=== PATIENT | male | born 1930 | race Caucasian/White ===

== ENCOUNTER → 2017-12-05 | Outpatient (CLI) | payer MEDICARE ==
[~2017-12-05] MED LIST: AC325T PO; ALPR.5T PO; AMLO5TAB2 PO; ASP81TEC PO; CARV6.25 PO; CYCL5TAB11 PO; ENAL5TAB PO; ENLP5T PO; MAG355OR55 PO; MTF500T PO; ONDAN4ODT PO; ROSU5TAB PO; SERT50TA PO; SIMV20TA3 PO; TEMA30CA6 PO
--- NOTE | 2017-12-05 13:00 | Diagnostic Imaging Report ---
INDICATION: Trauma. 3 views were obtained FINDINGS: The alignment is normal. The plafonds and talar domes are intact. Ankle mortise is symmetric. There is no fracture or dislocation. There are mild degenerative changes. IMPRESSION: Osteopenia and mild degenerative change without acute fracture or dislocation. Dictated by: Dictated on workstation # [id number]
== END ==
LOC: RAD 11:15
PROVIDERS: ATTEND Internal Medicine
DX: S99.911A Unspecified injury of right ankle, initial encounter (principal); M85.871 Other specified disorders of bone density and structure, right ankle and foot; M19.071 Primary osteoarthritis, right ankle and foot
CPT/HCPCS: 73610